=== PATIENT | female | born 1965 | race Hispanic/Latino ===

== ENCOUNTER → 2017-11-15 | Outpatient (CLI) | payer OTHER ==
[~2017-11-15] MED LIST: ARMOUR THYROID PO; CYMBALTA60 MG PO; ESTROVEN TD; FLAGYL250 MG; HYDROCODONE PO; LEVAQUIN500 MG PO; LOMOTIL TABLET1 EACH; NORCO 5-325 TA1 EACH PO; PERCOCET 10-321 EACH PO; ULTRACET TABLE1 EACH PO
--- NOTE | 2017-11-15 18:10 | Diagnostic Imaging Report ---
PROCEDURE: C-SPINE AP AND LAT WITH FLEX AND EXT COMPARISON: None. INDICATIONS: NECK PAIN FINDINGS: C1 through C7 are visualized on the lateral view. The patient is status post anterior cervical discectomy and fusion from C4-C6. Cervical plate and screws are intact without loosening. 3 mm of anterolisthesis of C3 on C4 is stable on neutral and extension positions. It is not visible with flexion. This is similar to previous exam. There are no new areas of listhesis. Mild degenerative changes at C6-7 are stable. The facets and spinous processes are normally aligned. Alignment is maintained on AP image. Skull base and upper chest are unremarkable. CONCLUSION: Stable postoperative changes from ACDF. Stable anterolisthesis of C3 on C4 visible in neutral position and extension. Dictated by: Renata Ramirez M.D. on 11/15/2017 at 18:10 Electronically approved by: Renata Ramierz M.D. on 11/15/2017 at 18:10
== END | disposition home or self-care (01) ==
LOC: RAD 13:59
PROVIDERS: ATTEND Neurological Surgery
DX: M50.20 Other cervical disc displacement, unspecified cervical region (principal); Z98.1 Arthrodesis status
CPT/HCPCS: 72050